=== PATIENT | female | born 1970 | race Hispanic/Latino ===

== ENCOUNTER → 2018-06-18 | Day surgery (SDC) | payer OTHER ==
[~2018-06-18] MED LIST: FENTANYL CITRATE/PF 100MCG/2 ML INJ ONE; HYOSCYAMINE SULFATE 0.5 MG/ML INJ ONE; LIDOCAINE HCL 2% LOCAL INJ 5 ML SDV VIAL INJ ONE; MIDAZOLAM HCL 2 MG/2 ML VIAL ONE; PROPOFOL IV EMULSION 10 MG/ML 50 ML VIAL ONE
[2018-06-18 14:20] VITALS: BP 115/65
--- NOTE | 2018-06-18 14:24 | Operative Report ---
DATE OF PROCEDURE: June 18, 2018 REFERRING PHYSICIAN: Dr. Gaby Ervin. PROCEDURE PERFORMED: Colonoscopy. INDICATIONS FOR COLONOSCOPY: Colorectal cancer screening. MEDICATION: Patient was done under MAC. Please see anesthesiologist's note. PROCEDURE: With patient in the left lateral decubitus position, the flexible fiberoptic Olympus colonoscope was inserted into the rectum with ease and advanced all the way to the cecum. It was then withdrawn slowly. Mucosa overlying the cecum, ascending colon, transverse, descending, sigmoid and rectum appeared to be within normal limits. The scope was then retroflexed into the distal rectum. Moderate-sized internal hemorrhoids were noted, none of which was actively bleeding. The scope was then straightened out. It was subsequently withdrawn. Patient tolerated the procedure well. IMPRESSION: Internal hemorrhoids, none actively bleeding. PLAN: Initiate high-fiber low-fat diet. Initiate high-fiber supplement. Start Anucort-HC 25 mg suppositories b.i.d. times 10 days, then p.r.n. Job#: [id number] EV cc:GABY ERVIN MD
== END | disposition home or self-care (01) ==
LOC: OR 11:53
PROVIDERS: ATTEND Internal Medicine Gastroenterology
DX: Z12.11 Encounter for screening for malignant neoplasm of colon (principal); K64.8 Other hemorrhoids; K21.9 Gastro-esophageal reflux disease without esophagitis; F41.9 Anxiety disorder, unspecified
CPT/HCPCS: 45378; 81025; J1980; J2001; J2250

== ENCOUNTER 2018-12-18 17:34 | Observation (INO) | payer BC ==
[2018-12-16 13:57] LABS: BASOPHILS # (AUTO) 0.1 (0.0-0.1); BASOPHILS % 0.8 % (0.0-1.0); EOSINOPHILS # (AUTO) 0.2 (0.0-0.4); EOSINOPHILS % 2.2 % (0.0-6.0); HEMATOCRIT 35.5 % (34.2-44.1); HEMOGLOBIN 10.8 g/dL (12.0-16.0); LYMPHOCYTES % 38.7 % (18.0-39.1); MEAN CORPUSCULAR HEMOGLOBIN 21.9 pg (28-32); MEAN CORPUSCULAR HGB CONC 30.4 g/dL (31-35); MONOCYTES # (AUTO) 0.7 (0.2-0.8); MONOCYTES % 8.5 % (4.4-11.3); NEUTROPHILS # (AUTO) 3.8 (2.1-6.9); NEUTROPHILS % 49.1 % (38.7-80.0); PLATELET COUNT 289 x10e3/uL (140-360); RED BLOOD COUNT 4.93 x10e6/uL (3.6-5.1); RED CELL DISTRIBUTION WIDTH 22.9 % (11.7-14.4)
[2018-12-16 14:10] LABS: ANION GAP 11.9 mmol/L (8-16); BLOOD UREA NITROGEN 15 mg/dL (7-26); BUN/CREATININE RATIO 19 (6-25); CALCIUM 9.5 mg/dL (8.4-10.2); CARBON DIOXIDE 23 mmol/L (22-29); CHLORIDE 103 mmol/L (98-107); CREATININE, SERUM 0.77 mg/dL (0.57-1.11); EST GLOMERULAR FILTRATION RATE > 60 ML/MIN (60-); GLUCOSE 88 mg/dL (74-118); POTASSIUM 3.9 mmol/L (3.5-5.1); SODIUM 134 mmol/L (136-145)
--- NOTE | 2018-12-16 14:27 | Diagnostic Imaging Report ---
EXAMINATION: CHEST 2 VIEWS INDICATION: Pre-op. COMPARISON: None FINDINGS: TUBES and LINES: None. LUNGS: Lungs are well inflated. Mild patchy left basilar opacity, likely atelectasis. There is no evidence of pneumonia or pulmonary edema. PLEURA: No pleural effusion or pneumothorax. HEART AND MEDIASTINUM: The cardiomediastinal silhouette is unremarkable. BONES AND SOFT TISSUES: No acute osseous abnormality. UPPER ABDOMEN: No free air under the diaphragm. IMPRESSION: No acute radiographic abnormality. Signed by: Dr. Xavi Pearson MD on 12/16/2018 2:24 PM
[~2018-12-18] VITALS: Ht 152.4 cm; Wt 64.9 kg
[~2018-12-18 17:34] MED LIST changes: +ACETAMINOPHEN 1000 MG/100 ML 100 ML IV ONE; +BUPIVACAINE 0.25%/EPI 30ML SDV INJ ONE; -FENTANYL CITRATE/PF 100MCG/2 ML INJ ONE; +HYDROCODONE/APAP 7.5MG-325MG 1 EA TAB PO PRN; +HYDROMORPHONE 0.2MG/ML-SOD CHL 30ML PCA SYRINGE IV ONE; +HYDROMORPHONE 0.2MG/ML-SOD CHL 30ML PCA SYRINGE IV PRN; -HYOSCYAMINE SULFATE 0.5 MG/ML INJ ONE; +LIDOCAINE HCL 1% LOCAL INJ 20 ML VIAL ONE; +LIDOCAINE HCL 2% 30 ML TUBE ONE; -LIDOCAINE HCL 2% LOCAL INJ 5 ML SDV VIAL INJ ONE; -MIDAZOLAM HCL 2 MG/2 ML VIAL ONE; +NALOXONE HCL INJ 0.4 MG/ML AMP IV PRN; -PROPOFOL IV EMULSION 10 MG/ML 50 ML VIAL ONE
--- OUTSIDE RECORDS SUMMARY | 2018-12-18 17:39 | XMS REPORT ---
Author Author [facility] Address Unknown Phone Unavailable Care Team Providers Care Frame Coverer Name Role Phone Naveed CAPELLAN Unavailable Unavailable Problems This patient has no known problems. Allergies, Adverse Reactions, Alerts This patient has no known allergies or adverse reactions. Medications This patient has no known medications. Results Test Description Test Time Test Comments Text Results Atomic Results Result Comments CHEST 2 VIEWS 2018-12-16 14:22:00 [place] [address] Patient Name: APRIL PERSAUD MR #: [id number] : 1970 Age/Sex: 48/F Req #: [id number] Adm Physician: Ordered by: ERNESTO CAPELLAN MD Report #: [id number] Location: OR Room/Bed: Procedure: [id number] DX/CHEST 2 VIEWS Exam Date: 12/16/18 Exam Time: 1330 REPORT STATUS: Signed EXAMINATION: CHEST 2 VIEWS INDICATION: Pre-op. COMPARISON: None FINDINGS: TUBES and LINES: None. LUNGS: Lungs are well inflated. Mild patchy left basilar opacity, likely atelectasis. There is no evidence of pneumonia or pulmonary edema. PLEURA: No pleural effusion or pneumothorax. HEART AND MEDIASTINUM: The cardiomediastinal silhouette is unremarkable. BONES AND SOFT TISSUES: No acute osseous abnormality. UPPER ABDOMEN: No free air under the diaphragm. IMPRESSION: No acute radiographic abnormality. Signed by: Dr. Ayden Banda MD on 12/16/2018 2:24 PM Dictated By: AYDEN BANDA MD [id number] Transcribed By: CESAR on 12/16/181423 COPY TO: ERNESTO CAPELLAN MD
[2018-12-18] MEDS ORDERED: ONDANSETRON HCL INJ 2MG/ML 2ML 2 MG/ML VIAL ONE (17:47)
[2018-12-18 18:08] VITALS: BP 146/63
--- NOTE | 2018-12-18 18:12 | NUR ---
Recvd patient from PACU, assisted her to bed, resp even and unlabored, on S[employer] CL[employer] Pump, not in any distress , call light in reach
[2018-12-18] MEDS: ONDANSETRON HCL INJ 2MG/ML 2ML 2 MG/ML VIAL IV PRN ×2 (18:44→22:45)
--- NOTE | 2018-12-18 18:55 | NUR ---
Got report from previous nurse. Call light within reach. Son at bedside.
[2018-12-18] MEDS: CEFOXITIN 1GM/ D5W 50ML 50 ML IV SCH (19:02)
[2018-12-18 19:30] VITALS: BP 113/69
[2018-12-18] MEDS ORDERED: FENTANYL CITRATE/PF 100MCG/2 ML INJ ONE (19:39)
[2018-12-18] MEDS ORDERED: MIDAZOLAM HCL 2 MG/2 ML VIAL ONE (19:39)
[2018-12-18 20:00] VITALS: BP 113/69
[2018-12-18 20:13] VITALS: BP 113/69
[2018-12-18] MEDS ORDERED: PNEUMOCOCCAL VACCINE POLYVALENT 23 MCG/0.5 ML VIAL IM SCH (21:56)
--- NOTE | 2018-12-18 23:12 | Operative Report ---
DATE OF PROCEDURE: 12/18/2018 SURGEON: Harjinder Kelley MD PREOPERATIVE DIAGNOSIS: Thrombosed prolapsing circumferential internal and external hemorrhoids. POSTOPERATIVE DIAGNOSIS: Thrombosed prolapsing circumferential internal and external hemorrhoids. OPERATION PERFORMED: Internal and external hemorrhoidectomy with anoplasty. DENTAL SALES REPRESENTATIVE: IZZY Pandey. ANESTHESIA: General. COMPLICATIONS: None. ESTIMATED BLOOD LOSS: Minimal. DESCRIPTION OF PROCEDURE: With the patient lying in bed in the lithotomy position under good general anesthesia. The perineum was prepped with Betadine solution and draped in the usual manner. A complete anorectal block was then performed with 0.25% Marcaine and 1% xylocaine in usual fashion. Examination at this point revealed a complete circumferential hemorrhoidal prolapse with thrombosis, both internal and external components. We decided to go ahead and do it in 3 groups, one at the 12 o'clock, the other one of the 8 o'clock and then at 4 o'clock position. All 3 groups were done in similar fashion. The base of the hemorrhoidal prolapse was then ligated with a 0 chromic suture. The external component was then sharply resected along with the internal component. Base of the hemorrhoid was further oversewn with the same 0 chromic suture. Hemostasis was ascertained and the skin and mucosa were then reapproximated with interrupted sutures of 3-0 chromic. All 3 groups were done in similar fashion. Hemostasis was ascertained. A Gelfoam pack impregnated with Xylocaine was placed. The dressing was applied. The sponge, lap, and needle count were correct. The patient tolerated the procedure well and returned to the recovery room in stable condition. MD GUILLERMO Mathew/MODL /[id number]
[2018-12-19] VITALS: BP 107/59
[2018-12-19] MEDS: CEFOXITIN 1GM/ D5W 50ML 50 ML IV SCH (00:34)
[2018-12-19] MEDS: DEXTROSE 5%/LACTATED RINGERS 1,000 ML IV SCH ×2 (02:40→12:57)
--- NOTE | 2018-12-19 07:13 | NUR ---
Gave report to oncoming nurse. Patient in bed. Call light within reach.
[2018-12-19 08:02] VITALS: BP 105/60
[2018-12-19 10:53] VITALS: BP 105/60
[2018-12-19] MEDS: ONDANSETRON HCL INJ 2MG/ML 2ML 2 MG/ML VIAL IV PRN (11:05)
[2018-12-19 11:40] VITALS: BP 108/61
[2018-12-19 16:07] VITALS: BP 104/56
[2018-12-19] MEDS ORDERED: NORCO 7.5-3251 EACH PO (17:55)
[2018-12-19] MEDS ORDERED: KEFLEX500 MG PO (17:57)
[2018-12-19] MEDS ORDERED: SURFAK240 MG PO (18:03)
[2018-12-19] MEDS ORDERED: [UNRECOGNIZED DRUG - OTHER] (18:11)
[2018-12-19] MEDS ORDERED: TRIAMCINOLONE 0.1% TOP (18:16)
== END 2018-12-19 19:26 | disposition home or self-care (01) ==
LOC: OR 17:34 → IMCU 17:38
PROVIDERS: ADMIT Surgery; ATTEND Surgery
DX: K64.8 Other hemorrhoids (principal)
CPT/HCPCS: 36415; 46262; 71046; 80048; 81025; 85025; 88304; 90732; 93005; G0378 ×2; J0131; J2001; J2250; J2405 ×2; J7121 ×2